=== PATIENT | male | born 1960 | race Caucasian/White ===

== ENCOUNTER 2020-02-14 12:09 | Day surgery (SDC) | payer OTHER ==
[2020-02-11 13:26] LABS: Basophils % 0.9 % (0-1.3); Hematocrit 39.1 % (39.6-49.0); Lymphocytes % 14.6 % (15.3-44.8); MPV 8.5 fL (7.6-11.3); RBC Red Blood Cell Count 4.34 M/uL (4.33-5.43)
[2020-02-11 13:45] LABS: Potassium 3.9 mmol/L (3.5-5.1)
--- NOTE | 2020-02-11 14:07 | RAD REPORT ---
EXAM DESCRIPTION: RAD - Chest Pa And Lat (2 Views) - 02/11/2020 1:57 pm CLINICAL HISTORY: pre-op, pending hernia repair COMPARISON: Portable March 2011, two view chest December 2008 TECHNIQUE: Frontal and lateral views of the chest were obtained. FINDINGS: The lungs are clear. Interstitial pattern is not substantially different from comparison. Heart size is normal and central vasculature is within normal limits. No pleural effusion or pneumo thorax seen. No acute bony finding noted. No aortic abnormality. IMPRESSION: No acute cardiopulmonary process.
--- NOTE | 2020-02-11 17:44 | EKG ---
Test Date: 2020-02-11 Test Time: 13:28:28 Podiatric Physician: CATA MEASUREMENT RESULTS: Intervals: Rate: 49 NH: 146 QRSD: 100 QT: 422 QTc: 381 [place]: P: 68 NH: 146 QRS: 55 T: 61 INTERPRETIVE STATEMENTS: Marked sinus bradycardia Abnormal ECG Compared to ECG 04/01/2011 13:28:05 No significant changes Electronically Signed On 02-11-20 17:44:06 CDT by Zia Rivera
--- OUTSIDE RECORDS SUMMARY | 2020-02-14 12:13 | XMS REPORT ---
:1960 [facility] Address [address] [place] [address] Dr. Srivastava [address] [place] [id number] Care Team Providers Name Role Phone LOREN DARCI Unavailable Unavailable Problems This patient has no known problems. Allergies, Adverse Reactions, Alerts This patient has no known allergies or adverse reactions. Medications This patient has no known medications. Encounters Start End Encounter Admission Attending Care Care Encounter Date/Time Date/Time Type Type Clinicians Facility Department ID 2019-09-16 2019-09-16 Outpatient C ISAMAR PIMENTEL RAD [id number] 14:18:00 23:59:00 DARCI Results Test Description Test Time Test Comments Text Results Atomic Results Result Comments KNEE RIGHT 1 OR 2 2019-09-16 15:12:00 EXAMINATION: KNEE RIGHT 1 OR 2 VIEW*GP* VIEW*GP*.LOCATION: D4.HISTORY: 9437329: Operative procedure on knee.COMPARISON: None.TECHNIQUE: AP and lateral views of the right knee were obtained.FINDINGS:There has been prior ACL repair. The screw within the lateral femoral condyleemanates approximately 4 mm from the cortex. Marginal osteophyte formation isseen about the knee with moderate medial femorotibial joint space narrowing. Noacute fracture or dislocation is identified. Couple calcific loose bodies areseen in the infrapopliteal fossa.IMPRESSION:Prior ACL repair. The screw within the lateral femoral condyle emanatesapproximately 4 mm from the cortex. Moderate degenerative changes in the right knee with couple calcific loosebodies in the infrapopliteal fossa.
[2020-02-14] MEDS ORDERED: Ringers Lactate 0 ML IV ONE (12:25)
[2020-02-14] MEDS ORDERED: VANCOMYCIN/NS 1 gm 1 GM/250 ML BAG IV ONE (12:30)
[2020-02-14] MEDS ORDERED: Ringers Lactate 1,000 ML IV ONE (12:37)
== END 2020-02-14 12:37 | disposition home or self-care (01) ==
LOC: OR 12:09
PROVIDERS: ATTEND Surgery
DX: K40.90 Unilateral inguinal hernia, without obstruction or gangrene, not specified as recurrent (principal); Z53.8 Procedure and treatment not carried out for other reasons
CPT/HCPCS: 93005; 85025; 80048; 36415; 71046; J7120; J3370

== ENCOUNTER 2020-02-18 08:50 | Day surgery (SDC) | payer OTHER ==
--- OUTSIDE RECORDS SUMMARY | 2020-02-18 08:52 | XMS REPORT ---
:1960 [facility] Address [address] [place] [address] Dr. Srivastava [address] [place] [id number] Care Team Providers Name Role Phone LOREN DARCI Unavailable Unavailable Problems This patient has no known problems. Allergies, Adverse Reactions, Alerts This patient has no known allergies or adverse reactions. Medications This patient has no known medications. Encounters Start End Encounter Admission Attending Care Care Encounter Date/Time Date/Time Type Type Clinicians Facility Department ID 2019-09-16 2019-09-16 Outpatient C ISAMAR PIMENTEL RAD [id number] 14:18:00 23:59:00 DARCI Results Test Description Test Time Test Comments Text Results Atomic Results Result Comments KNEE RIGHT 1 OR 2 2019-09-16 15:12:00 EXAMINATION: KNEE RIGHT 1 OR 2 VIEW*GP* VIEW*GP*.LOCATION: D4.HISTORY: [id number]: Operative procedure on knee.COMPARISON: None.TECHNIQUE: AP and [...]
[2020-02-18] MEDS ORDERED: VANCOMYCIN/NS 1 gm 1 GM/250 ML BAG IV ONE (09:00)
[2020-02-18] MEDS ORDERED: Ringers Lactate 1,000 ML IV ONE ×2 (09:01→12:56)
[2020-02-18] MEDS ORDERED: FENTANYL CITR 100 MCG/2 ML ONE ×2 (09:23→11:56)
[2020-02-18] MEDS ORDERED: propofoL 200 MG/20 ML VIAL IV ONE (09:23)
[2020-02-18] MEDS ORDERED: MIDAZOLAM HCL 2 MG/2 ML INJ ONE (09:24)
[2020-02-18] MEDS ORDERED: LIDOCAINE 2% MPF 5 ML VIAL ONE (09:24)
[2020-02-18] MEDS ORDERED: ONDANSETRON 4 MG/2 ML VIAL ONE ×2 (09:25→13:49)
[2020-02-18] MEDS ORDERED: ROCURONIUM 50 MG/5 ML VIAL IV ONE (09:26)
[2020-02-18] MEDS ORDERED: BUPIVACA 0.25%/EPI 0.0005%/PF 30 ML VIAL ONE (10:47)
--- NOTE | 2020-02-18 12:42 | P.OP ---
Preoperative diagnosis: RIGHT incarcerated inguinal hernia Postoperative diagnosis: RIGHT incarcerated inguinal hernia Primary procedure: Open RIGHT inguinal hernia repair with mesh Anesthesia: GETA + Local Estimated blood loss: <10cc Specimen: Cord Lipoma Findings: Incarcerated RIGHT inguinal hernia, Complications: None Drain(s): Nasogastric Implants: Bard Perfix Medium Plug and Patch Mesh Transferred to: Recovery Room Condition: Good
[2020-02-18] MEDS ORDERED: NEOSTIGMINE 1 MG/ML -5 ML ONE (12:51)
[2020-02-18] MEDS ORDERED: GLYCOPYRROLATE 0.2 MG/ML SYR ONE (12:52)
[2020-02-18] MEDS: HYDROMORPHONE HCL 1 MG/ML INJ ONE ×4 (13:14→13:38)
--- NOTE | 2020-02-18 13:15 | OP ---
Date of Procedure: 02/18/2020 Surgeon: Demetris Kaminski MD, Preoperative Diagnosis: Right incarcerated inguinal hernia. Postoperative Diagnosis: Right incarcerated inguinal hernia. Procedure Performed: Open right inguinal hernia repair with mesh. Anesthesia: General endotracheal plus local 0.5% Marcaine with epinephrine. Estimated Blood Loss: Less than 10 cc. Specimen: Cord lipoma. Findings: 1.Incarcerated right inguinal hernia. 2.Indirect inguinal hernia. 3.Thin external oblique aponeurosis. 4.Narrow opening causing some impingement upon the cord structures. Complications: None. Drains: None. Implants: Bard PerFix medium plug and patch hernia repair mesh system. Disposition: Transferred to recovery room in good condition. Procedure In Detail: After informed consent was obtained, patient was brought to the operating room, prepped draped in the usual sterile fashion after adequate anesthesia achieved. The right inguinal incision was appropriately anesthetized with 0.5% Marcaine with epinephrine. I then used a 15 blade down through subcutaneous tissues to dissect down through subcutaneous plane. I then used electrocau alayna to dissect down through Camper fat and Nahed fascia to expose the external oblique aponeurosis. The external oblique aponeurosis was opened sharply and found to be quite thin and alveolar, but th e fibers could be identified running in the appropriate anatomic direction. After this was opened us ing Metzenbaum scissors, I found the cord structures and encircled this with a Hodan drain. I then dissected back to the hernia sac, which was found to be incarcerated at the deep inguinal ring. Thi s was circumferentially dissected and a large cord lipoma was removed. The hernia sac was then opene d and abdominal contents returned to the normal anatomic position. This consists primarily a preperi toneal fat. This was returned to the preperitoneal position. I then inverted the hernia sac and luz ropriate size medium Bard PerFix plug system hydrated and placed in the preperitoneal space, securing it circumferentially with 3 stitches at 90 degree angles. After this was placed appropriately, I pa lpated and ensured that the mesh was appropriately flared out in the preperitoneal space and the dave ia sac was then inverted over the top of this and closed with a simple interrupted 2-0 PDS suture. T he patch system was then brought and appropriately hydrated. The area was copiously irrigated and figueroa ctioned until dry. I incised the mesh appropriately and trimmed up the keyhole into the mesh and ana tequila on the pubic tubercle, securing it to the pubic tubercle with a 2-0 PDS suture and circumferentia lly on the medial and lateral shelving edges allowing for reconstruction of the inguinal ring and cov ering the previous defect. I then copiously irrigated this area once again, pulled the testicle back in the normal anatomic position to ensure that there was no tension on the repair and irrigated the area copiously once again. I then closed the external oblique aponeurosis with a running 3-0 Vicryl suture with good approximation of tissues. I then closed Camper fat and Nahed fascia en bloc over t he top using a 3-0 interrupted Vicryl suture and placed 3 simple interrupted deep dermal sutures of 3 -0 Vicryl once again, and the skin was closed with a 4-0 Monocryl in a running fashion, Dermabond ana tequila over top. The patient tolerated the procedure well without evidence of complication, transferred to PACU in good condition. All counts were correct at the end of the case. EHSAN/MARVIN Voice ID: [id number] Report ID: [id number]
[2020-02-18] MEDS ORDERED: HYDROCODONE/APAP 10/325 TAB ONE (14:31)
[2020-02-18 14:41] VITALS: TEMP 97.6; O2SAT 97
[2020-02-18 15:11] VITALS: BP 134/69
== END 2020-02-18 15:20 | disposition home or self-care (01) ==
LOC: OR 08:50
PROVIDERS: ATTEND Surgery
PROC: 0YU50JZ Supplement Right Inguinal Region with Synthetic Substitute, Open Approach (ICD-10-PCS; principal; 2020-02-18 10:15)
DX: K40.30 Unilateral inguinal hernia, with obstruction, without gangrene, not specified as recurrent (principal); D17.6 Benign lipomatous neoplasm of spermatic cord; F17.220 Nicotine dependence, chewing tobacco, uncomplicated
CPT/HCPCS: 88302; 49507; J2704; J2250; J3010 ×2; J1170 ×2; J2710; J3370; J7120 ×2; J2405 ×2